=== PATIENT | male | born 1990 | race Caucasian/White ===

== ENCOUNTER 2018-11-09 13:04 | Emergency (ER) | payer OTHER ==
[~2018-11-09] VITALS: Ht 182.9 cm; Wt 67.1 kg
[~2018-11-09 13:04] MED LIST: ACETAMINOPHEN-1 EAC1 PO; CHANTIX0.5 MG PO; DOXYCYCLINE HY100 MG PO; EXCEDRIN EXTRA1 EAC1 PO; NORCO 5-325 TA1 EACH PO; TRAMADOL HCL50 MG PO; TRAZODONE HCL50 MG PO
[2018-11-09] MEDS ORDERED: CRUTCH1 EACH MISC (14:47)
== END 2018-11-09 15:07 | disposition home or self-care (01) ==
LOC: ED 13:04
DX: S32.402A Unspecified fracture of left acetabulum, initial encounter for closed fracture (principal); F17.200 Nicotine dependence, unspecified, uncomplicated; Z88.0 Allergy status to penicillin; Z88.5 Allergy status to narcotic agent; Z91.040 Latex allergy status; Z91.030 Bee allergy status; Z88.6 Allergy status to analgesic agent; V89.2XXA Person injured in unspecified motor-vehicle accident, traffic, initial encounter
CPT/HCPCS: 72193; 90471; 90715; 99284-25; 99406

== ENCOUNTER 2020-05-24 03:33 | Emergency (ER) | payer OTHER ==
[~2020-05-24] VITALS: Ht 182.9 cm; Wt 59.0 kg
[~2020-05-24 03:33] MED LIST changes: +CRUTCH1 EACH MISC
[2020-05-24] MEDS ORDERED: PROTONIX40 MG PO (04:14)
== END 2020-05-24 04:22 | disposition home or self-care (01) ==
LOC: ED 03:33
DX: K29.00 Acute gastritis without bleeding (principal); Z87.891 Personal history of nicotine dependence; Z88.8 Allergy status to other drugs, medicaments and biological substances; Z91.030 Bee allergy status; Z88.0 Allergy status to penicillin; Z91.040 Latex allergy status
CPT/HCPCS: 99283

== ENCOUNTER 2020-06-15 09:00 | Emergency (ER) | payer OTHER ==
[~2020-06-15] VITALS: Ht 182.9 cm; Wt 59.0 kg
[~2020-06-15 09:00] MED LIST changes: +PROTONIX40 MG PO
--- OUTSIDE RECORDS SUMMARY | 2020-06-15 09:02 | XMS ---
PreManage Notification: WENDY CLEANING Security Industry Consultant Events No recent Security Events currently on file CRITERIA MET - [facility] - 2 Visits in 30 Days CARE PROVIDERS There are no care providers on record at this time. Chris has no Care Guidelines for this patient. [facility]12 MO.) [facility] NOTE: Visits indicate total known visits. [place] [place] (12 MO.) 06/15/2020 09:[facility] [place] TYPE: Emergency COMPLAINT: - FACIAL SWELLING, DENTAL PROBLEM 05/24/2020 03:34 [facility] TYPE: Emergency COMPLAINT: - ABDOMINAL PAIN DIAGNOSES: - Latex allergy status - Epigastric pain - Bee allergy status - Allergy status to penicillin - Allergy status to other drugs, medicaments and biological substances - Personal history of nicotine dependence - Acute gastritis without bleeding INPATIENT VISIT TRACKING (12 MO.) No inpatient visits to display in this time frame [email or web address]
[2020-06-15] MEDS ORDERED: CLEOCIN HCL300 MG PO (12:47)
--- NOTE | 2020-06-16 13:35 | EKG ---
[facility] [address] [facility] [place] [address] Signed Supraventricular tachycardia Left ventricular hypertrophy with QRS widening Abnormal ECG No previous ECGs available Confirmed by SHAHLA RICCI MD ([id number]) on 06/16/2020 1:34:48 PM Electronically Signed By: SHAHLA RICCI MD 06/16/20 1335 PATIENT NAME: WENDY CLEANING Electrocardiogram DATE OF : 89 PHYSICIAN: SHAHLA RICCI MD REPORT #: [id number] REPORT IS CONFIDENTIAL AND NOT TO BE RELEASED WITHOUT AUTHORIZATION
--- NOTE | 2020-06-16 13:35 | EKG ---
[facility] [address] [place] [address] Signed Sinus tachycardia Right atrial enlargement Left ventricular hypertrophy with repolarization abnormality Abnormal ECG When compared with ECG of 15-JUN-2020 09:22, (Unconfirmed) Sinus rhythm has replaced Supraventricular tachycardia Vent. rate has decreased BY 90 BPM Confirmed by SHAHLA RICCI MD ([id number]) on 06/16/2020 1:35:26 PM Electronically Signed By: SHAHLA RICCI MD 06/16/20 1335 PATIENT NAME: WENDY CLEANING Electrocardiogram DATE OF : [birth year] PHYSICIAN: SHAHLA RICCI MD REPORT #: [id number] REPORT IS CONFIDENTIAL AND NOT TO BE RELEASED WITHOUT AUTHORIZATION
== END 2020-06-15 13:15 | disposition home or self-care (01) ==
LOC: ED 09:00
PROC: 0C9XXZ0 Drainage of Lower Tooth, External Approach, Single (ICD-10-PCS; principal; 2020-06-15)
DX: K04.7 Periapical abscess without sinus (principal); L03.213 Periorbital cellulitis; I47.1 Supraventricular tachycardia; J45.909 Unspecified asthma, uncomplicated; Z87.891 Personal history of nicotine dependence; Z91.030 Bee allergy status; Z88.0 Allergy status to penicillin; Z91.040 Latex allergy status; Z88.5 Allergy status to narcotic agent
CPT/HCPCS: 41800; 70487; 80053; 83605; 83735; 84443; 84484; 85025; 87070; 87147; 87205; 93005; 93010; 99285-25; J0153; J7030; Q9967

== ENCOUNTER 2020-10-27 13:05 | Emergency (ER) | payer OTHER ==
[~2020-10-27] VITALS: Ht 182.9 cm; Wt 59.0 kg
[~2020-10-27 13:05] MED LIST changes: +CLEOCIN HCL300 MG PO
[2020-10-27] MEDS ORDERED: PAIN RELIEF500 M1 PO (13:21)
== END 2020-10-27 16:00 | disposition home or self-care (01) ==
LOC: ED 13:05
DX: K52.9 Noninfective gastroenteritis and colitis, unspecified (principal); J45.909 Unspecified asthma, uncomplicated; Z87.891 Personal history of nicotine dependence; Z88.0 Allergy status to penicillin; Z91.040 Latex allergy status; Z88.5 Allergy status to narcotic agent; Z91.030 Bee allergy status
CPT/HCPCS: 99284

== ENCOUNTER 2022-01-11 23:40 | Emergency (ER) | payer OTHER ==
[~2022-01-11] VITALS: Ht 182.9 cm; Wt 68.0 kg
[~2022-01-11 23:40] MED LIST changes: +PAIN RELIEF500 M1 PO
[2022-01-12] MEDS ORDERED: BACTRIM DS TAB1 EACH PO (00:53)
== END 2022-01-12 01:28 | disposition home or self-care (01) ==
LOC: ED 23:40
DX: S61.210A Laceration without foreign body of right index finger without damage to nail, initial encounter (principal); W26.0XXA Contact with knife, initial encounter; J45.909 Unspecified asthma, uncomplicated; Z87.891 Personal history of nicotine dependence; Z88.0 Allergy status to penicillin; Z91.040 Latex allergy status; Z88.5 Allergy status to narcotic agent; Z91.030 Bee allergy status
CPT/HCPCS: 12002; 99282-25; A9270